=== PATIENT | male | born 1995 | race Caucasian/White ===

== ENCOUNTER 2024-04-22 21:16 | Emergency (ER) | payer MEDICAID ==
[~2024-04-22] VITALS: Ht 177.8 cm; Wt 82.0 kg
[2024-04-22 21:26] VITALS: BP 141/72; PULSE 81; RESP 18; TEMP 99.5; O2SAT 100
[2024-04-22] MEDS ORDERED: AMOX-100 PO (22:22)
== END 2024-04-22 22:35 | disposition home or self-care (01) ==
LOC: ER 21:18
DX: H66.93 Otitis media, unspecified, bilateral (principal); H69.83 Other specified disorders of Eustachian tube, bilateral
CPT/HCPCS: 99283